=== PATIENT | female | born 1960 | race Caucasian/White ===

== ENCOUNTER → 2016-12-31 | Outpatient (CLI) | payer OTHER, BC | LOC: RAD 15:41 | DX: M47.892 Other spondylosis, cervical region (principal) ==

== ENCOUNTER → 2017-01-23 | Outpatient (CLI) | payer OTHER, BC | LOC: RAD 15:12 | DX: M79.89 Other specified soft tissue disorders (principal) ==

== ENCOUNTER → 2017-10-23 | Outpatient (CLI) | payer OTHER, BC | LOC: MRI 09:04 | DX: M48.02 Spinal stenosis, cervical region (principal); M54.12 Radiculopathy, cervical region; Z98.890 Other specified postprocedural states ==

== ENCOUNTER → 2018-06-15 | Outpatient (CLI) | payer OTHER, BC | LOC: ULTRA 09:29 | DX: K76.0 Fatty (change of) liver, not elsewhere classified (principal); R80.9 Proteinuria, unspecified; Q63.1 Lobulated, fused and horseshoe kidney; Z90.49 Acquired absence of other specified parts of digestive tract ==

== ENCOUNTER → 2018-12-17 | Outpatient (CLI) | payer OTHER, BC ==
[~2018-12-17] VITALS: Ht 157.5 cm; Wt 129.3 kg
[~2018-12-17] MED LIST: CELEBREX 200 M200 MG PO; CELLCEPT500 MG PO; CLONIDINE HCL0.1 MG PO; COREG25 MG PO; CYCLOSPORINE25 M1 PO; FLEXERIL PO; HYDROCHLOROTHIA25 M2 PO; NIFEDIPINE ER30 MG PO; NORCO 7.5-3251 EACH PO; POTASSIUM CITR10 ME1 PO; PREDNISONE 1 MG1 M1 PO; TYLENOL EXTRA500 MG PO; ZYRTEC10 M5 PO; [UNRECOGNIZED DRUG - OTHER]
--- NOTE | ~2018-12-17 | HPC ---
[facility] [place] [address] PAIN MANAGEMENT CONSULTATION Name: TIA DE JESUS Room #: REG LAWSON Allan#: [id number] Admission: 12/17/18 ������������������ Attend Phys: Justo Fall MD Discharge: ������������������ Date of : 60 Report #: [id number] THIS REPORT FOR: //name// CC: Carlos Manuel Fall DATE OF SERVICE: 12/17/2018 CHIEF COMPLAINT: All over pain, I have fibromyalgia. HISTORY OF PRESENT ILLNESS: I am seeing the patient today at the request of Dr. Spencer. She has longstanding diffuse pain, which she describes as fibromyalgia and polymyositis. She is here today for my assessment and suggestions. The patient reports that she has been living with this pain for decades. She has had multiple flares over time and her most recent severe flare was in 09/2018. She describes her pain as muscular, constant, aching, burning, shooting, cramping, throbbing, on a daily basis. The pain intensity is an 8/10. It is worsened by weather and by activities. Unfortunately she is morbidly obese with a BMI of 52.1. This limits her mobility. She has been making efforts to do some exercise. In her own words, she says that at times, it feels like her entire body is bruised. She has had multiple treatments over the years. For her myositis, she has been on cyclosporine and receives IVIG treatments under the care of chief data officer Dr. Connie Dubon. Medication trials in the past have included antidepressants including Cymbalta, all causing migraine headaches. She describes several other medications for treatment of fibromyalgia including Lyrica and gabapentin, which caused her to be "spacey." She feels the same way about tramadol and although she reports pain relief and benefit from hydrocodone, it makes her too drowsy to take at any time other than after work. She does not take it at work and uses on an average one tablet to two tablets per day. Some days none. The most she has ever taken in a single day is 3 hydrocodone tablets. After multiple discussions today, it appears that is the only thing that has given her some relief. The opioid crisis has of course limited are suggesting that she take more medication. We also both acknowledged that everything written about fibromyalgia suggest that opioids are relatively contraindicated in the management of the disease. CURRENT MEDICATIONS: Carvedilol, nifedipine, hydrochlorothiazide, prednisone 8 mg a day, tapering currently; clonidine, mycophenolate mofetil, Zyrtec, cyclobenzaprine were on rare occasions for spasm, taken in the nighttime only, cyclosporine 25 mg 6 tablets b.i.d. and Tylenol 500 mg 2 tablets as needed for pain. [address] [address] PAIN MANAGEMENT CONSULTATION Name: TIA DE JESUS Room #: REG LAWSON Lemus#: [id number] Admission: 12/17/18 ������������������ Attend Phys: Justo Fall MD Discharge: ������������������ Date of : 60 Report #: [id number] ALLERGIES: INTOLERANCE TO ANTIDEPRESSANTS. PAST MEDICAL HISTORY: Diabetes, hypertension, morbid obesity. PAST SURGICAL HISTORY: Uterine ablation, cholecystectomy and she has had an anterior cervical diskectomy and fusion with some complaints of persistent neck pain. SOCIAL HISTORY: She denies use of tobacco; drinks alcohol once or twice per month. This is always in a social setting. She denies any addictions. 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 She has taken very little time off of work. She is . REVIEW OF SYSTEMS: Positive for weight gain, fatigue, weakness, headaches, shortness of breath, dyspnea on exertion on occasions, wheezing on occasion, frequent urination, nocturia, and a history of kidney stones in the distant past, occasional nervousness, heat and cold intolerance. PHYSICAL EXAMINATION: GENERAL: She is very well spoken, pleasant, outgoing 58-year-old. VITAL SIGNS: Her blood pressure is 145/94, heart rate 81, respirations 16, O2 sat 96. She is 5 feet 2 inches and 285 pounds, has a BMI of 52.1. CHEST: Clear. CARDIAC: Rhythm is regular. MUSCULOSKELETAL: She moves independently from sitting to standing position and her gait is markedly antalgic. She has limited range of motion around the cervical and lumbar spine. She meets criteria for fibromyalgia with multiple paired tender points exceeding 12 from neck through calf. She has multiple joint tenderness as well. Range of motion is adequate throughout joints. She has no excessive numbness or tingling. Deep tendon reflexes are diminished in the upper and lower extremities. IMPRESSION: 1. Fibromyalgia. 2. Polymyositis. 3. Morbid obesity. 4. Hypertension. 5. History of cervical radiculopathy, status post anterior cervical diskectomy and fusion. 6. History of horseshoe kidney. 7. Gastroesophageal reflux disease. 8. Type 2 diabetes. RECOMMENDATION: We had a lengthy discussion today about this self-efficacy and management necessary to live with chronic intractable pain particularly [facility] [address] [place] [address] PAIN MANAGEMENT CONSULTATION Name: TIA DE JESUS Room #: REG LAWSON Lemus#: [id number] Admission: 12/17/18 ������������������ Attend Phys: Justo Fall MD Discharge: ������������������ Date of : 60 Report #: [id number] fibromyalgia. We talked about the other criteria is other than pain for the diagnosis of fibromyalgia, which are depressed mood, decreased energy, sleep disturbance. We talked a little bit about sleep hygiene. We talked about the importance of wellness behaviors and I have given her information to pursue for support groups and treatment groups at [facility]. We talked about it developing good daily exercise habits will improve blood through the muscles particularly a daily walking program. She does not like to walk distance because it is uncomfortable for her, but I believe that this will be extremely therapeutic and she must add this to her daily regimen. We finished off the discussion on opioids and the treatment of chronic intractable pain. I think she should minimize her use; however, her current MME as outlined in the CDC guideline would be 7.5. This would be considered low dose. I think as she is using her hydrocodone, she can continue indefinitely. She should use it in anticipation of activities that she would enjoy doing and she can also take it when the pain is quite severe. It is unfortunate that she has so much sedation that she can take it during the day, it might improve her daily function and certainly improve her chronic pain. Acknowledging the use of an opioid as a chronic pain medication, it is controversial; however, in our clinic we found this to be oftentimes the best course of action. She has found no additional medications other than the opioid class to provide any sustained relief. I did not schedule a followup visit. This is mostly an informational meeting. I spent about 45 minutes with her in consultation. ��������������������������������������������� ���������������������������������������� By: ��������������������������������������������� 1825 24 Justo Fall MD /nt
[2018-12-17 15:03] VITALS: BP 145/94
--- NOTE | 2018-12-17 15:29 | NUR ---
Pain Clinic Assessment: 1. History of Osteoarthritis: DENIES History of Rheumatoid Arthritis: DENIES 2. Height: 5 ft. 2 in. 157.5 cm. Weight: 285.0 lb. oz. 129.276 kg. Patient's BMI: 52.1 3. Vital Signs: BP: 145/94 Pulse: 81 Resp: 16 Temp: 02 Sat: 96 ECG Mon: 4. Pain Intensity: 8 5. Fall Risk: Dizziness: N Needs help standing or walking: N Fallen in the last 3 months: N Fall risk comments: 6. Patient on Blood Thinner: None 7. History of Hypertension: Y 8. Opioid Therapy greater than 6 weeks: N Opiate Contract Signed: 9. Risk Assessment Tool Provided: 10. Functional Assessment Tool: 11. Recreational Drug Use: Never Drug Type: Tobacco Use: Never Smoker Tobacco Type: Amount or Packs/day: How Many Years: Alcohol Use: Yes Frequency: Weekly Quant: 2X A WEEK
== END ==
LOC: PAIN 07:03
DX: M79.7 Fibromyalgia (principal); M33.20 Polymyositis, organ involvement unspecified; E66.01 Morbid (severe) obesity due to excess calories; I10 Essential (primary) hypertension; K21.9 Gastro-esophageal reflux disease without esophagitis; E11.9 Type 2 diabetes mellitus without complications; Z79.899 Other long term (current) drug therapy; Z98.1 Arthrodesis status; Z88.8 Allergy status to other drugs, medicaments and biological substances; Z90.49 Acquired absence of other specified parts of digestive tract; Z68.43 Body mass index [BMI] 50.0-59.9, adult

== ENCOUNTER → 2019-02-10 | Outpatient (CLI) | payer OTHER, BC | LOC: RAD 12:22 | DX: M54.16 Radiculopathy, lumbar region (principal); M25.78 Osteophyte, vertebrae; M41.85 Other forms of scoliosis, thoracolumbar region; M12.88 Other specific arthropathies, not elsewhere classified, other specified site; M48.04 Spinal stenosis, thoracic region; Z88.8 Allergy status to other drugs, medicaments and biological substances ==

== ENCOUNTER → 2020-08-25 | Outpatient (CLI) | payer OTHER, BC | LOC: RAD 16:38 | PROVIDERS: ATTEND Nurse Practitioner | DX: S90.111A Contusion of right great toe without damage to nail, initial encounter (principal); X58.XXXA Exposure to other specified factors, initial encounter; Y93.89 Activity, other specified; Y92.89 Other specified places as the place of occurrence of the external cause; Y99.8 Other external cause status ==

== ENCOUNTER → 2020-12-27 | Outpatient (CLI) | payer OTHER, BC | LOC: MRI 10:05 | PROVIDERS: ATTEND Family Medicine | DX: M47.814 Spondylosis without myelopathy or radiculopathy, thoracic region (principal); M51.34 Other intervertebral disc degeneration, thoracic region; M50.123 Cervical disc disorder at C6-C7 level with radiculopathy; M48.02 Spinal stenosis, cervical region; M50.11 Cervical disc disorder with radiculopathy, high cervical region; M89.38 Hypertrophy of bone, other site ==

== ENCOUNTER → 2021-02-22 | Outpatient (CLI) | payer OTHER, BC ==
[~2021-02-22] VITALS: Ht 157.5 cm; Wt 120.0 kg
[~2021-02-22] MED LIST changes: +LEFLUNOMIDE20 MG PO; +TRULICITY4.5 MG/0.5 SUBQ
[2021-02-22 13:21] VITALS: BP 143/90
--- NOTE | 2021-02-22 13:38 | NUR ---
Pain Clinic Assessment: 1. History of Osteoarthritis: DENIES History of Rheumatoid Arthritis: DENIES 2. Height: 5 ft. 2 in. 157.5 cm. Weight: 264.6 lb. oz. 120.022 kg. Patient's BMI: 48.4 3. Vital Signs: BP: 143/90 Pulse: 89 Resp: 20 Temp: 02 Sat: 97 ECG Mon: 4. Pain Intensity: 9 5. Fall Risk: Dizziness: N Needs help standing or walking: N Fallen in the last 3 months: N Fall risk comments: 6. Patient on Blood Thinner: None 7. History of Hypertension: Y 8. Opioid Therapy greater than 6 weeks: N Opiate Contract Signed: 9. Risk Assessment Tool Provided: 10. Functional Assessment Tool: 11. Recreational Drug Use: Never Drug Type: Tobacco Use: Never Smoker Tobacco Type: Amount or Packs/day: How Many Years: Alcohol Use: Yes Frequency: Special Occasions Quant: 2
== END ==
LOC: PAIN 08:01
PROVIDERS: ATTEND Anesthesiology Pain Medicine
DX: M54.12 Radiculopathy, cervical region (principal); E66.01 Morbid (severe) obesity due to excess calories; I10 Essential (primary) hypertension; K21.9 Gastro-esophageal reflux disease without esophagitis; E11.9 Type 2 diabetes mellitus without complications; Z88.8 Allergy status to other drugs, medicaments and biological substances; Z90.49 Acquired absence of other specified parts of digestive tract; Z68.42 Body mass index [BMI] 45.0-49.9, adult; Z98.890 Other specified postprocedural states

== ENCOUNTER → 2021-03-01 | Outpatient (CLI) | payer OTHER, BC ==
[~2021-03-01] VITALS: Ht 157.5 cm; Wt 121.3 kg
[2021-03-01 10:13] VITALS: BP 145/88
--- NOTE | 2021-03-01 10:19 | NUR ---
Pain Clinic Assessment: 1. History of Osteoarthritis: DENIES History of Rheumatoid Arthritis: DENIES 2. Height: 5 ft. 2 in. 157.5 cm. Weight: 267.4 lb. oz. 121.292 kg. Patient's BMI: 48.9 3. Vital Signs: BP: 145/88 Pulse: 87 Resp: 20 Temp: 02 Sat: 97 ECG Mon: 4. Pain Intensity: 10 5. Fall Risk: Dizziness: N Needs help standing or walking: N Fallen in the last 3 months: N Fall risk comments: 6. Patient on Blood Thinner: None 7. History of Hypertension: Y 8. Opioid Therapy greater than 6 weeks: N Opiate Contract Signed: 9. Risk Assessment Tool Provided: 10. Functional Assessment Tool: 11. Recreational Drug Use: Never Drug Type: Tobacco Use: Never Smoker Tobacco Type: Amount or Packs/day: How Many Years: Alcohol Use: No Frequency: Quant:
== END | disposition home or self-care (01) ==
LOC: PAIN 07:10
PROVIDERS: ATTEND Anesthesiology Pain Medicine
DX: M54.12 Radiculopathy, cervical region (principal); G89.29 Other chronic pain; I10 Essential (primary) hypertension; E11.9 Type 2 diabetes mellitus without complications; K21.9 Gastro-esophageal reflux disease without esophagitis; E66.01 Morbid (severe) obesity due to excess calories; Z98.890 Other specified postprocedural states; Z79.899 Other long term (current) drug therapy; Z88.8 Allergy status to other drugs, medicaments and biological substances; Z68.42 Body mass index [BMI] 45.0-49.9, adult; Z90.49 Acquired absence of other specified parts of digestive tract

== ENCOUNTER → 2021-04-05 | Outpatient (CLI) | payer OTHER, BC ==
[~2021-04-05] VITALS: Ht 157.5 cm; Wt 122.5 kg
[2021-04-05 08:53] VITALS: BP 156/102
--- NOTE | 2021-04-05 09:06 | NUR ---
Pain Clinic Assessment: 1. History of Osteoarthritis: DENIES History of Rheumatoid Arthritis: DENIES 2. Height: 5 ft. 2 in. 157.5 cm. Weight: 270.0 lb. oz. 122.472 kg. Patient's BMI: 49.4 3. Vital Signs: BP: 156/102 Pulse: 94 Resp: 20 Temp: 02 Sat: 98 ECG Mon: 4. Pain Intensity: 8 5. Fall Risk: Dizziness: N Needs help standing or walking: N Fallen in the last 3 months: N Fall risk comments: 6. Patient on Blood Thinner: None 7. History of Hypertension: Y 8. Opioid Therapy greater than 6 weeks: N Opiate Contract Signed: 9. Risk Assessment Tool Provided: 10. Functional Assessment Tool: 11. Recreational Drug Use: Never Drug Type: Tobacco Use: Never Smoker Tobacco Type: Amount or Packs/day: How Many Years: Alcohol Use: No Frequency: Quant:
== END ==
LOC: PAIN 07:50
PROVIDERS: ATTEND Anesthesiology Pain Medicine
DX: M54.12 Radiculopathy, cervical region (principal); Z79.899 Other long term (current) drug therapy; Z79.891 Long term (current) use of opiate analgesic

== ENCOUNTER → 2021-04-12 | Outpatient (CLI) | payer OTHER, BC ==
[~2021-04-12] VITALS: Ht 157.5 cm; Wt 122.5 kg
[2021-04-12 12:57] VITALS: BP 157/87
== END | disposition home or self-care (01) ==
LOC: PAIN 09:36
PROVIDERS: ATTEND Anesthesiology Pain Medicine
DX: M54.12 Radiculopathy, cervical region (principal); G89.29 Other chronic pain; M79.7 Fibromyalgia; Z98.890 Other specified postprocedural states; Z79.899 Other long term (current) drug therapy; Z88.8 Allergy status to other drugs, medicaments and biological substances

== ENCOUNTER → 2021-06-28 | Outpatient (CLI) | payer OTHER, BC | LOC: ULTRA 09:23 | PROVIDERS: ATTEND Family Medicine | DX: K76.0 Fatty (change of) liver, not elsewhere classified (principal); R16.0 Hepatomegaly, not elsewhere classified; Z90.49 Acquired absence of other specified parts of digestive tract ==